=== PATIENT | female | born 1945 | race Caucasian/White ===

== ENCOUNTER 2025-01-25 17:30 | Observation (INO) ==
--- NOTE | 2025-01-25 17:54 | Emergency Department Note ---
Impression & Plan Fracture, humerus closed ED Provider Note NAME: YAHAIRA LÓPEZ AGE: 80 SEX: F : 1945 ARRIVES VIA: Ambulance INFORMANT: Patient ED PROVIDER(S): Jamie Chopra MD CHIEF COMPLAINT: Fall, left arm pain PLAN: Disposition: Admit MEDICAL DECISION MAKING: The patient is a pleasant 80-year-old woman with a past medical history of hypertension who presents to the emergency department via EMS after having a ground-level fall prior to arrival when the patient lost control walking down hill running into a metal fence where her left shoulder was caught and fell to the ground hitting her head with abrasion of the bridge of her nose and deformity of her left upper arm. She denies loss of consciousness. She is not on anticoagulation. She denies any neck, chest back or pelvic pain. They report that they are from [facility] and are visiting their daughter in the [facility]. On evaluation the patient is uncomfortable no distress, afebrile with blood pressure 140/100s in setting of discomfort and vital signs otherwise stable. Patient exhibits minor abrasion to the forehead and bridge of the nose without laceration. No midline CTL spine tenderness palpation or step-offs. She has deformity of the left mid upper arm with limited range of motion secondary to pain. Distal PMS is intact. Elbow without gross deformity or tenderness. Chest x-ray negative for fracture or dislocation. X-ray of the left shoulder demonstrates acute traumatic and moderately displaced spiral fracture of the left proximal humerus. Given findings, blood work and EKG obtained. X-ray findings were reviewed with Julio Cesar Donohue orthopedic ALINA with Dr. Wang, orthopedic surgery on-call. Following review of images, recommendations are for immobilization with coaptation splint. Injury is not considered to be surgical and recommendations would be for transition to a Cochran brace in approximately 2 weeks. Appreciate consultation recommendations. EKG without overt acute ischemia. WBC, H/H and platelets within normal limits. Creatinine 1.26 without prior for comparison. Chemistry without metabolic acidosis. Electrolytes and LFTs unremarkable. Out of caution CT of the head, face and cervical spine were obtained. Per my preliminary independent interpretation no acute abnormalities/traumatic findings identified. Findings reviewed the patient and family at the bedside. They did understandably express concern regarding her impaired functional status with her injury and did prefer admission to the hospitalist service for pain control and PT. Case was discussed with Dr. Wang, [facility] hospitalist, who will evaluate the patient for admission. Further management per admitting team. Triage Nursing notes reviewed and agree them. Prior/external medical records reviewed Vital Signs: reviewed Differential diagnosis: Fracture, dislocation, contusion, intra-abdominal, pneumothorax, intrathoracic, intracranial, neurologic, compartment syndrome, rhabdomyolysis, as well as other pathologies. ER treatment provided: See below. Diagnostics interpreted by me: ECG: Normal sinus rhythm, 77 bpm, no ectopy, no overt ST ovation or depression, QTc 450, QRS 94 Cardiac Monitoring: An order for continuous cardiac monitoring was placed and demonstrated Normal sinus rhythm, 77 bpm, no ectopy Laboratory studies: See below Imaging studies: See below Consultation(s): Julio Cesar Donohue orthopedic ALINA with Dr. Wang, orthopedic surgery on-call. Dr. Wang [facility] hospitalist. HPI: Per MDM. ROS: See above HPI for pertinent positives & negatives. A total of 10 systems reviewed and were otherwise negative. VITALS:See Below PHYSICAL EXAMINATION: GENERAL: Awake, alert, uncomfortable-appearing, in no distress HENT: Normocephalic, minor abrasion of the forehead and bridge of the nose without laceration. Oropharynx unremarkable. EYES: Normal conjunctiva. Sclera non-icteric. EOMI. No nystamgus. PEARRL. NECK: Supple. No nuchal rigidity. FROM. No JVD. RESPIRATORY: Clear to auscultation. CARDIAC: Regular rate, normal rhythm. Extremities warm and well perfused. Pulses equal. ABDOMEN: Soft, non-distended. No tenderness to palpation. No rebound or guarding. No masses. MUSCULOSKELETAL: Chest examination reveals no tenderness. The back is symmetrical on inspection without obvious abnormality. There is no CVA tenderness to palpation. Deformity of the left mid upper arm with limited range of motion secondary to pain. Distal PMS is intact. Elbow without gross deformity or tenderness. LOWER EXTREMITIES: Calves are equal size bilaterally and non-tender. Mild bilateral lower extremity edema. No discoloration. NEURO: No focal sensory or motor deficits noted. SKIN: No rash or jaundice noted. Jamie Chopra MD Past Med/Surg History Problem List (Updated 01/26/25 @ 02:09 by Adeline Wang DO) Fracture, humerus closed (Acute) Medical History (Updated 01/26/25 @ 02:09 by Adeline Wang DO) Hypertension Surgical History (Updated 01/26/25 @ 02:09 by Adeline Wang DO) History of cataract Social History Smoking Status: Never smoker Hx Alcohol Use: Yes Hx Substance Use: No Preferred Language: Nepali Communication Ability: Effective Molecular Biology Director Required: No Beliefs That Will Affect Care: None Current Living Situation: Spouse Feels Safe at Home: Yes Safety Concerns: Feels Safe At This Time Assistive Devices: Brace/Splint/Immobilizer Allergies Allergies Allergy/AdvReac Type Severity Reaction Status Date / Time No Known Allergies Allergy Unverified 01/25/25 21:56 Home Meds Home Medications Medication Instructions Recorded Confirmed Prevagen 1 cap PO DAILY 01/25/25 01/25/25 hydrochlorothiazide 12.5 mg capsule 12.5 mg PO DAILY 01/25/25 01/25/25 lisinopril 5 mg tablet 5 mg PO DAILY 01/25/25 01/25/25 Results & Data (ED) Vital Signs Vital Signs - 24 hr 01/25/25 17:48 01/25/25 18:15 01/25/25 19:38 Temperature 36.7 C Temperature Source Oral Pulse Rate 80 80 71 Pulse Rhythm Regular Pulse Strength Normal Respiratory Rate 18 16 Respiratory Effort / Characteristics Non-Labored Spontaneous Respiratory Depth Normal Respiratory Pattern Regular Blood Pressure 147/100 H 135/102 H Blood Pressure Mean 115 115 Blood Pressure Position Semi-fowlers Pulse Oximetry 98 98 Oxygen Delivery Method Room Air Sepsis Recent Fever Within 48 Hours No Sepsis New/Unexplained Change in Mental Status No Sepsis Action Taken by Nursing No Action Required 01/25/25 20:00 01/25/25 21:32 01/25/25 22:19 Temperature Temperature Source Pulse Rate 74 72 75 Pulse Rhythm Pulse Strength Respiratory Rate 16 16 20 Respiratory Effort / Characteristics Respiratory Depth Respiratory Pattern Blood Pressure 162/83 H 131/91 151/99 H Blood Pressure Mean 114 112 129 Blood Pressure Position Pulse Oximetry 96 97 98 Oxygen Delivery Method Room Air Sepsis Recent Fever Within 48 Hours Sepsis New/Unexplained Change in Mental Status Sepsis Action Taken by Nursing Laboratory Data Attestation: I reviewed the patient's lab results. 01/25/25 19:54 01/25/25 21:20 Lab Results 01/25/25 01/25/25 Range/Units 19:54 21:20 WBC 8.38 (4.8-10.8) K/ul RBC 4.04 L (4.20-5.40) M/uL Hgb 12.3 (12.0-16.0) g/dl Hct 38.1 (37.0-47.0) % MCV 94.3 (80.0-100.0) fL MCH 30.4 (25.0-34.0) pg MCHC 32.3 (32.0-36.0) g/dL RDW Std Deviation 47.0 H (36.4-46.3) fL RDW Coeff of [place] 13.5 (11.5-14.5) % Plt Count 214 (130-400) K/uL MPV 11.7 (9.4-12.4) fL Immature Gran % (Auto) 0.5 % Neut % (Auto) 59.4 % Lymph % (Auto) 26.3 % [place] % (Auto) 9.7 % Eos % (Auto) 3.7 % Baso % (Auto) 0.4 % Neut # (Auto) 4.99 (1.40-6.50) K/uL Lymph # (Auto) 2.20 (1.20-3.40) K/uL [place] # (Auto) 0.81 H (0.11-0.59) K/uL Eos # (Auto) 0.31 (0.00-0.50) K/uL Baso # (Auto) 0.03 (0.00-0.20) K/uL Immature Gran # (Auto) 0.04 (0.01-0.20) K/uL PT Cancelled 10.7 INR Cancelled 1.0 APTT Cancelled 22 PTT Ratio Cancelled 0.8 Sodium 144 (136-145) mmol/L Potassium TNP 4.4 Chloride 110 H (98-107) mmol/L Carbon Dioxide 25 (21-32) mmol/L Anion Gap 9 (3-11) BUN 26 H (6-23) mg/dl Creatinine 1.26 H (0.6-1.2) mg/dl Est Cr Clr Drug Dosing 39.3 ml/min eGFR 42.62 BUN/Creatinine Ratio 20.6 H (10-20) Glucose 110 H (70-99(Fasting)) mg/dl Calcium 9.3 (8.6-10.3) mg/dl Total Bilirubin 0.3 (0.2-1.0) mg/dl AST TNP 18 ALT 18 (7-52) U/L Alkaline Phosphatase 46 (34-104) U/L Total Protein 7.0 (6.0-8.3) gm/dl Albumin 3.9 (3.4-5.0) gm/dl Globulin 3.1 (2.5-4.0) gm/dl Albumin/Globulin Ratio 1.3 (0.9-2) Administered Medications Lactated Ringer's (Lr) 1,000 mls @ 80 mls/hr IV .[id number] [facility] Stop: 01/26/25 12:11 Last Admin: 01/25/25 23:54 Dose: 80 mls/hr Documented By: MIGUEL Morphine Sulfate (Morphine Sulfate 2 Mg/Ml Carp) 2 mg IV Q3H PRN PRN Reason: Pain (6,7,8,9,10) Stop: 02/08/25 23:41 Last Admin: 01/26/25 03:18 Dose: 2 mg Documented By: MIGUEL Discontinued Medications Acetaminophen (Ofirmev) 1,000 mg in 100 mls @ 400 mls/hr IV NOW STA Stop: 01/25/25 18:05 Last Infusion: 01/25/25 19:00 Dose: Infused Documented By: Admin: 01/25/25 18:14 Dose: 400 mls/hr Documented By: JAMARCUS Sodium Chloride (Nss) 1,000 mls @ 75 mls/hr IV .[id number] [facility] Stop: 01/26/25 09:04 Last Infusion: 01/25/25 23:00 Dose: Infused Documented By: Admin: 01/25/25 20:00 Dose: 75 mls/hr Documented By: ELENI Morphine Sulfate (Morphine Sulfate 2 Mg/Ml Carp) 2 mg IV NOW STA Stop: 01/25/25 17:52 Last Admin: 01/25/25 18:16 Dose: 2 mg Documented By: JAMARCUS Morphine Sulfate (Morphine Sulfate 2 Mg/Ml Carp) 2 mg IV NOW STA Stop: 01/25/25 19:50 Last Admin: 01/25/25 20:00 Dose: 2 mg Documented By: ELENI Morphine Sulfate (Morphine Sulfate 2 Mg/Ml Carp) 2 mg IV NOW STA Stop: 01/25/25 22:07 Last Admin: 01/25/25 22:15 Dose: 2 mg Documented By: ELENI Ondansetron HCl (Ondansetron Inj 2 Mg/Ml 2 Ml Vial) 4 mg IV NOW STA Stop: 01/25/25 17:52 Last Admin: 01/25/25 18:16 Dose: 4 mg Documented By: TDM Imaging Data Radiologist's Impression: Cervical Spine CT 01/25/25 17:51 Exam(s): CT C SPINE EXAM: CT Cervical Spine Without Intravenous Contrast CLINICAL HISTORY: Reason for exam: fall, contusion. TECHNIQUE: Axial computed tomography images of the cervical spine without intravenous contrast. CTDI is 36 mGy and DLP is 718 mGy-cm. Automated exposure control was utilized for the study. A dose lowering technique was utilized adhering to the principles of ALARA. COMPARISON: No relevant prior studies available. FINDINGS: Vertebrae: Moderate narrowing and osteophytosis of the atlantodental joint. The odontoid process is intact. No acute fracture. Soft tissues: Unremarkable. Vasculature: Mild calcification of the carotid bifurcation bilaterally. DISCS/SPINAL CANAL/NEURAL FORAMINA: C2-C3: Mild degenerative disc disease. No stenosis. C3-C4: Moderate degenerative disc disease. Mild spinal stenosis measuring 9 mm. C4-C5: Moderate degenerative disc disease. Posterior disc herniation and disc marginal osteophyte measuring 4 mm narrowing the spinal canal to 7 mm. C5-C6: Moderate degenerative disc disease. 6 mm central disc herniation narrowing the thecal sac to 5 mm. C6-C7: Moderate degenerative disc disease. 4 mm central disc herniation narrowing the thecal sac to 6 mm. C7-T1: Moderate degenerative disc disease. No stenosis. IMPRESSION: Moderate multilevel degenerative disc disease and mild facet arthrosis throughout the cervical spine. No acute fracture or subluxation is seen. There is straightening of the normal cervical curvature suggesting spasm. [id number] multilevel spinal stenosis as described above. Electronically signed by: Sergo Wang MD 01/25/25 23:22 PM Chest X-Ray 01/25/25 17:51 EXAM: Portable AP chest radiograph TECHNIQUE: AP portable radiograph of the chest was obtained. INDICATION: Trauma Comparison: None FINDINGS: LINES and TUBES: None CARDIOVASCULAR: Cardiac silhouette is mildly enlarged in size. LUNGS/PLEURA: Mild pulmonary vascular congestion. No focal consolidation identified. No significant pleural fluid. No discernible pneumothorax. OSSEOUS/OTHER: No displaced acute osseous process identified in the chest. IMPRESSION: Mild congestive changes of the cardiovascular system. Electronically signed by Wai Madrigal 01-25-2025 7:46 PM Elbow X-Ray 01/25/25 17:51 EXAM: XR elbow LT min 3V routine CLINICAL HISTORY: Fall left shoulder pain TECHNIQUE: X-ray images of the left elbow were obtained in anteroposterior (AP), lateral, and oblique projections. COMPARISON: No prior studies available for comparison. FINDINGS: Bone Structure: The bone structure of the left elbow is normal and well-aligned. Questionable cortical irregularity involving the coronoid process only on one view/osteophyte, please correlate clinically, or CT elbow joint is advised for further evaluation No definite evidence of acute fractures, dislocations, or significant degenerative changes. Visible posterior fat pad likely denoting joint effusion. Joint Spaces: Joint spaces are preserved. No evidence of joint effusion or subluxation. Articular Surfaces: Articular surfaces are smooth and intact. No signs of osteophyte formation or subchondral sclerosis. Soft Tissues: Enthesopathy is seen at the site of attachment of the triceps tendon Periarticular soft tissues appear normal and unremarkable. No soft tissue swelling, calcifications, or foreign bodies noted. Additional Findings: Visible posterior fat pad likely denoting joint effusion. IMPRESSION: 1. Questionable cortical irregularity involving the coronoid process only on one view/osteophyte, please correlate clinically, or CT elbow joint is advised for further evaluation 2. No definite evidence of acute fractures, dislocations, or significant degenerative changes. 3. Visible posterior fat pad likely denoting joint effusion. 4. Enthesopathy is seen at the site of attachment of the triceps tendon. Disclaimer: A subtle bone abnormality or fracture may not be readily apparent on X-rays, thus clinical correlation and further imaging including follow-up CT, MRI, or follow-up X-rays are advised as needed. Electronically signed by Jalil Parker 01-25-2025 8:[address] 01/25/25 17:51 Exam(s): CT HEAD Without Contrast EXAM: CT Head Without Intravenous Contrast CLINICAL HISTORY: Reason for exam: fall, contusion. TECHNIQUE: Axial computed tomography images of the head/brain without intravenous contrast. CTDI is 36 mGy and DLP is 718 mGy-cm. Automated exposure control was utilized for the study. A dose lowering technique was utilized adhering to the principles of ALARA. COMPARISON: No relevant prior studies available. FINDINGS: Brain: Unremarkable. No hemorrhage. Mild nonspecific white matter changes. No edema. Ventricles: Mild ventriculomegaly. Bones/joints: Unremarkable. No acute fracture. Soft tissues: Unremarkable. Sinuses: Unremarkable as visualized. No acute sinusitis. Mastoid air cells: Unremarkable as visualized. No mastoid effusion. IMPRESSION: No evidence of acute intracranial pathology. Electronically signed by: Zarina Marks MD 01/25/25 23:19 PM Pelvis X-Ray 01/25/25 17:51 INDICATION: Trauma TECHNIQUE: Frontal pelvic radiograph and 1 additional view of the right hip were obtained. COMPARISON: None FINDINGS: No displaced acute osseous process is identified. Mild osteoarthritis of both hip joints. IMPRESSION: No displaced acute osseous process is identified. Electronically signed by Wai Madrigal 01-25-2025 8:18 PM Shoulder X-Ray 01/25/25 17:51 INDICATION: TRAUMA TECHNIQUE: 2 views of the left shoulder were obtained. COMPARISON: None FINDINGS: There is an acute traumatic and moderately displaced spiral fracture in the proximal shaft of the left humerus with medial displacement of the distal humeral segment. IMPRESSION: Acute traumatic and moderately displaced spiral fracture of the left proximal humerus. Electronically signed by Wai Madrigal 01-25-2025 7:[address] 01/25/25 17:53 Exam(s): CT FACIAL Without Contrast EXAM: CT Head and Maxillofacial Without Intravenous Contrast CLINICAL HISTORY: Reason for exam: contusion fall. TECHNIQUE: Axial computed tomography images of the head/brain and face without intravenous contrast. CTDI is 36 mGy and DLP is 718 mGy-cm. Automated exposure control was utilized for the study. A dose lowering technique was utilized adhering to the principles of ALARA. COMPARISON: No relevant prior studies available. FINDINGS: Bones/joints: Findings concerning for left nasal bone fracture. Periapical abscess around tooth #14. Recommend dental consult. Severe spinal canal stenosis at C3-4. Soft tissues: Soft tissue swelling around the nose. Sinuses: Unremarkable as visualized. No acute sinusitis. Mastoid air cells: Unremarkable as visualized. No mastoid effusion. Orbits: Unremarkable as visualized. IMPRESSION: Findings concerning for left nasal high fracture with soft tissue swelling. Electronically signed by: Zarina Marks MD 01/25/25 23:23 PM Discharge Plan Visit Data Chief Complaint: Fall ED Provider: Jamie Chopra Discharge Problem: Fracture, humerus closed Patient Disposition: Admitted As Inpatient Condition: Fair Discharge Instructions Interventions: ED Discharge Assessment Last Done: 01/25/25 23:13
[2025-01-25] MEDS: ACETAMINOPHEN 1,000 MG/100 ML VIAL IV STA (18:14)
[2025-01-25] MEDS: ONDANSETRON INJ 2 MG/ML 2 ML VIAL IV STA (18:16)
[2025-01-25] MEDS: MoRPHine SULFATE 2 MG/ML CARP IV STA ×3 (18:16→22:15)
--- NOTE | 2025-01-25 19:47 | XRay Report ---
INDICATION: TRAUMA TECHNIQUE: 2 views of the left shoulder were obtained. COMPARISON: None FINDINGS: There is an acute traumatic and moderately displaced spiral fracture in the proximal shaft of the left humerus with medial displacement of the distal humeral segment. IMPRESSION: Acute traumatic and moderately displaced spiral fracture of the left proximal humerus. Electronically signed by Wai Madrigal 01-25-2025 7:46 PM
--- NOTE | 2025-01-25 19:47 | XRay Report ---
EXAM: Portable AP chest radiograph TECHNIQUE: AP portable radiograph of the chest was obtained. INDICATION: Trauma Comparison: None FINDINGS: LINES and TUBES: None CARDIOVASCULAR: Cardiac silhouette is mildly enlarged in size. LUNGS/PLEURA: Mild pulmonary vascular congestion. No focal consolidation identified. No significant pleural fluid. No discernible pneumothorax. OSSEOUS/OTHER: No displaced acute osseous process identified in the chest. IMPRESSION: Mild congestive changes of the cardiovascular system. Electronically signed by Wai Madrigal 01-25-2025 7:46 PM
[2025-01-25] MEDS: SODIUM CHLORIDE 0.9% 1,000 ML IV SCH (20:00)
--- NOTE | 2025-01-25 20:19 | XRay Report ---
INDICATION: Trauma TECHNIQUE: Frontal pelvic radiograph and 1 additional view of the right hip were obtained. COMPARISON: None FINDINGS: No displaced acute osseous process is identified. Mild osteoarthritis of both hip joints. IMPRESSION: No displaced acute osseous process is identified. Electronically signed by Wai Madrigal 01-25-2025 8:18 PM
[2025-01-25 20:21] LABS: Hematocrit (blood only) 38.1 % (37.0-47.0); Hemoglobin 12.3 g/dl (12.0-16.0); Immature Granulocytes # (auto) 0.04 K/uL (0.01-0.20); Immature Granulocytes % (auto) 0.5 %; Mean Corpuscular Hemoglobin 30.4 pg (25.0-34.0); Mean Corpuscular Volume 94.3 fL (80.0-100.0); Platelet Count 214 K/uL (130-400); RDW Standard Deviation 47.0 fL (36.4-46.3); Red Blood Count 4.04 M/uL (4.20-5.40); White Blood Count 8.38 K/ul (4.8-10.8)
[2025-01-25 20:46] LABS: Alanine Aminotransferase 18 U/L (7-52); Albumin Globulin Ratio 1.3 (0.9-2); Alkaline Phosphatase 46 U/L (34-104); Anion Gap 9 (3-11); Bilirubin,Total 0.3 mg/dl (0.2-1.0); Blood Urea Nitrogen 26 mg/dl (6-23); Calcium 9.3 mg/dl (8.6-10.3); Carbon Dioxide 25 mmol/L (21-32); Chloride 110 mmol/L (98-107); Creatinine Clr Calc Pharmacy 39.3 ml/min; Globulin 3.1 gm/dl (2.5-4.0); Glucose 110 mg/dl (70-99(Fasting)); Sodium 144 mmol/L (136-145); Total Protein 7.0 gm/dl (6.0-8.3)
--- NOTE | 2025-01-25 20:54 | XRay Report ---
EXAM: XR elbow LT min 3V routine CLINICAL HISTORY: Fall left shoulder pain TECHNIQUE: X-ray images of the left elbow were obtained in anteroposterior (AP), lateral, and oblique projections. COMPARISON: No prior studies available for comparison. FINDINGS: Bone Structure: The bone structure of the left elbow is normal and well-aligned. Questionable cortical irregularity involving the coronoid process only on one view/osteophyte, please correlate clinically, or CT elbow joint is advised for further evaluation No definite evidence of acute fractures, dislocations, or significant degenerative changes. Visible posterior fat pad likely denoting joint effusion. Joint Spaces: Joint spaces are preserved. No evidence of joint effusion or subluxation. Articular Surfaces: Articular surfaces are smooth and intact. No signs of osteophyte formation or subchondral sclerosis. Soft Tissues: Enthesopathy is seen at the site of attachment of the triceps tendon Periarticular soft tissues appear normal and unremarkable. No soft tissue swelling, calcifications, or foreign bodies noted. Additional Findings: Visible posterior fat pad likely denoting joint effusion. IMPRESSION: 1. Questionable cortical irregularity involving the coronoid process only on one view/osteophyte, please correlate clinically, or CT elbow joint is advised for further evaluation 2. No definite evidence of acute fractures, dislocations, or significant degenerative changes. 3. Visible posterior fat pad likely denoting joint effusion. 4. Enthesopathy is seen at the site of attachment of the triceps tendon. Disclaimer: A subtle bone abnormality or fracture may not be readily apparent on X-rays, thus clinical correlation and further imaging including follow-up CT, MRI, or follow-up X-rays are advised as needed. Electronically signed by Jalil Parker 01-25-2025 8:53 PM
[2025-01-25 21:53] LABS: Potassium 4.4 mmol/L (3.5-5.1)
[2025-01-25 22:17] LABS: INR 1.0 (0.9-1.1); Partial Thromboplastin Time 22 Seconds (21-31); Prothrombin Time 10.7 Seconds (9.0-12.0)
--- NOTE | 2025-01-25 22:25 | History & Physical Report ---
Date of Service January 25, 2025 Assessment & Plan (1) Fracture, humerus closed: (2) Hypertension: Plan 80 yo female with history of HTN presenting with acute traumatic and moderately displaced spiral fracture of the left proximal humerus that occurred this evening when patient sustained a fall and entangled her arm in a fence. LUE is presently being placed in a splint. Neurovascularly intact with 5/5 strength in left hand #Fracture - spiral, proximal humerus with moderate displacement. -Admit to medical -Maintain splint -Pain control with Tylenol 1gm PO TID and Morphine 1-2 mg IV q 3 hours as needed for pain -Zofran PRN nausea -Narcan PRN accidental overdose or respiratory depression -Scheduled Docusate/Senna and PRN Miralax -Orthopedic Surgery consultation appreciated - patient may wish to followup with local providers rather than returning to see her physicians in [facility] -PT/OT evaluations appreciated #Hypertension - patient with elevated blood pressure in setting of acute trauma and pain, history of HTN -Pain control as above -Continue home HCTZ and Lisinopril -Monitor BP History of Present Illness Chief Complaint: fall, left humerus fracture Primary Care Provider: DO Norma Moore Jose is a pleasant 80yo female with history of HTN presenting after a fall at home. Patient and her are from [facility] and are visiting family in [place]. She presents today with her and her son (son is a Neurosurgeon in the [place] area). Patient had been in her usual state of health until this evening when she fell down a small slope in the yard near the pool. Her left arm became entangled in a metal fence and she fell. She did strike her face but denies LOC. No report of chest pain, dizziness or palpitations. Patient presents with significant pain in the left arm with visible deformity as well as laceration on her nose. No additional complaints at this time. ER staff is in the process of splinting the LUE ER Course: Acetaminophen 1gm Morphine 2mg + 2mg + 2mg Zofran 4mg NSS x 1L Allergies Allergy/AdvReac Type Severity Reaction Status Date / Time No Known Allergies Allergy Unverified 01/25/25 21:56 Home Medications Medication Instructions Recorded Confirmed Type Prevagen 1 cap PO DAILY 01/25/25 01/25/25 History hydrochlorothiazide 12.5 mg capsule 12.5 mg PO DAILY 01/25/25 01/25/25 History lisinopril 5 mg tablet 5 mg PO DAILY 01/25/25 01/25/25 History Past Med/Surg History Problem List (Updated 01/26/25 @ 02:09 by Adeline Wang DO) Fracture, humerus closed (Acute) Medical History (Updated 01/26/25 @ 02:09 by Adeline Wang DO) Hypertension Surgical History (Updated 01/26/25 @ 02:09 by Adeline Wang DO) History of cataract Social History Smoking Status: Never smoker Hx Alcohol Use: Yes Hx Substance Use: No Preferred Language: Greenlandic Communication Ability: Effective Record Clerk Salesperson Required: No Beliefs That Will Affect Care: None Current Living Situation: Spouse Feels Safe at Home: Yes Safety Concerns: Feels Safe At This Time Assistive Devices: Brace/Splint/Immobilizer Review of Systems Review of Systems: All systems reviewed & are unremarkable except as noted in HPI & below Physical Exam Physical Exam: General: patient in significant discomfort from LUE fracture. Splint being placed by ER team. Skin: facial abrasions, no active bleeding HEENT: PERRL, EOMI, anicteric sclera, conjunctiva without injection, external ear normal to inspection and nontender, nares patent, moist mucus membranes, dentition intact, no oropharyngeal lesions, neck supple, trachea midline, no LAD, no thyromegaly, no JVD Heart: +S1/S2, regular, no m/r/g Lungs: equal air entry bilaterally, no rales/rhonchi/wheezes Abd: +BS, soft, NT/ND, no masses/organomegaly/ascites Ext: warm, 2+ pulses in UE/LE bilaterally, no clubbing/cyanosis or edema Neuro: nonfocal, patient AA&O x 4, speech intact, no facial droop, moving all extremities on command with equal strength 5/5 Results & Data Results & Data Vital Signs (Past 12 Hours) Vital Signs Temp Pulse Resp BP Pulse Ox O2 Del Method 01/25/25 21:32 72 16 131/91 97 01/25/25 20:00 74 16 162/83 H 96 Room Air 01/25/25 19:38 71 16 135/102 H 98 01/25/25 18:15 80 01/25/25 17:48 36.7 C 80 18 147/100 H 98 Room Air Laboratory Results Laboratory Results WBC 8.38 K/ul (4.8-10.8) 01/25/25 19:54 RBC 4.04 M/uL (4.20-5.40) L 01/25/25 19:54 Hgb 12.3 g/dl (12.0-16.0) 01/25/25 19:54 Hct 38.1 % (37.0-47.0) 01/25/25 19:54 MCV 94.3 fL (80.0-100.0) 01/25/25 19:54 MCH 30.4 pg (25.0-34.0) 01/25/25 19:54 MCHC 32.3 g/dL (32.0-36.0) 01/25/25 19:54 RDW Std Deviation 47.0 fL (36.4-46.3) H 01/25/25 19:54 RDW Coeff of Kings 13.5 % (11.5-14.5) 01/25/25 19:54 Plt Count 214 K/uL (130-400) 01/25/25 19:54 MPV 11.7 fL (9.4-12.4) 01/25/25 19:54 Immature Gran % (Auto) 0.5 % 01/25/25 19:54 Neut % (Auto) 59.4 % 01/25/25 19:54 Lymph % (Auto) 26.3 % 01/25/25 19:54 [place] % (Auto) 9.7 % 01/25/25 19:54 Eos % (Auto) 3.7 % 01/25/25 19:54 Baso % (Auto) 0.4 % 01/25/25 19:54 Neut # (Auto) 4.99 K/uL (1.40-6.50) 01/25/25 19:54 Lymph # (Auto) 2.20 K/uL (1.20-3.40) 01/25/25 19:54 [place] # (Auto) 0.81 K/uL (0.11-0.59) H 01/25/25 19:54 Eos # (Auto) 0.31 K/uL (0.00-0.50) 01/25/25 19:54 Baso # (Auto) 0.03 K/uL (0.00-0.20) 01/25/25 19:54 Immature Gran # (Auto) 0.04 K/uL (0.01-0.20) 01/25/25 19:54 PT 10.7 Seconds (9.0-12.0) 01/25/25 21:20 INR 1.0 (0.9-1.1) 01/25/25 21:20 APTT 22 Seconds (21-31) 01/25/25 21:20 PTT Ratio 0.8 01/25/25 21:20 Sodium 144 mmol/L (136-145) 01/25/25 19:54 Potassium 4.4 mmol/L (3.5-5.1) 01/25/25 21:20 Chloride 110 mmol/L (98-107) H 01/25/25 19:54 Carbon Dioxide 25 mmol/L (21-32) 01/25/25 19:54 Anion Gap 9 (3-11) 01/25/25 19:54 BUN 26 mg/dl (6-23) H 01/25/25 19:54 Creatinine 1.26 mg/dl (0.6-1.2) H 01/25/25 19:54 Est Cr Clr Drug Dosing 39.3 ml/min 01/25/25 19:54 eGFR 42.62 01/25/25 19:54 BUN/Creatinine Ratio 20.6 (10-20) H 01/25/25 19:54 Glucose 110 mg/dl (70-99(Fasting)) H 01/25/25 19:54 Calcium 9.3 mg/dl (8.6-10.3) 01/25/25 19:54 Total Bilirubin 0.3 mg/dl (0.2-1.0) 01/25/25 19:54 AST 18 U/L (13-39) 01/25/25 21:20 ALT 18 U/L (7-52) 01/25/25 19:54 Alkaline Phosphatase 46 U/L (34-104) 01/25/25 19:54 Total Protein 7.0 gm/dl (6.0-8.3) 01/25/25 19:54 Albumin 3.9 gm/dl (3.4-5.0) 01/25/25 19:54 Globulin 3.1 gm/dl (2.5-4.0) 01/25/25 19:54 Albumin/Globulin Ratio 1.3 (0.9-2) 01/25/25 19:[address] 01/25/25 17:51 Exam(s): CT C SPINE EXAM: CT Cervical Spine Without Intravenous Contrast CLINICAL HISTORY: Reason for exam: fall, contusion. TECHNIQUE: Axial computed tomography images of the cervical spine without intravenous contrast. CTDI is 36 mGy and DLP is 718 mGy-cm. Automated exposure control was utilized for the study. A dose lowering technique was utilized adhering to the principles of ALARA. COMPARISON: No relevant prior studies available. FINDINGS: Vertebrae: Moderate narrowing and osteophytosis of the atlantodental joint. The odontoid process is intact. No acute fracture. Soft tissues: Unremarkable. Vasculature: Mild calcification of the carotid bifurcation bilaterally. DISCS/SPINAL CANAL/NEURAL FORAMINA: C2-C3: Mild degenerative disc disease. No stenosis. C3-C4: Moderate degenerative disc disease. Mild spinal stenosis measuring 9 mm. C4-C5: Moderate degenerative disc disease. Posterior disc herniation and disc marginal osteophyte measuring 4 mm narrowing the spinal canal to 7 mm. C5-C6: Moderate degenerative disc disease. 6 mm central disc herniation narrowing the thecal sac to 5 mm. C6-C7: Moderate degenerative disc disease. 4 mm central disc herniation narrowing the thecal sac to 6 mm. C7-T1: Moderate degenerative disc disease. No stenosis. IMPRESSION: Moderate multilevel degenerative disc disease and mild facet arthrosis throughout the cervical spine. No acute fracture or subluxation is seen. There is straightening of the normal cervical curvature suggesting spasm. [id number] multilevel spinal stenosis as described above. Electronically signed by: Sergo Wang MD 01/25/25 23:22 PM Chest X-Ray 01/25/25 17:51 EXAM: Portable AP chest radiograph TECHNIQUE: AP portable radiograph of the chest was obtained. INDICATION: Trauma Comparison: None FINDINGS: LINES and TUBES: None CARDIOVASCULAR: Cardiac silhouette is mildly enlarged in size. LUNGS/PLEURA: Mild pulmonary vascular congestion. No focal consolidation identified. No significant pleural fluid. No discernible pneumothorax. OSSEOUS/OTHER: No displaced acute osseous process identified in the chest. IMPRESSION: Mild congestive changes of the cardiovascular system. Electronically signed by Wai Madrigal 01-25-2025 7:46 PM Elbow X-Ray 01/25/25 17:51 EXAM: XR elbow LT min 3V routine CLINICAL HISTORY: Fall left shoulder pain TECHNIQUE: X-ray images of the left elbow were obtained in anteroposterior (AP), lateral, and oblique projections. COMPARISON: No prior studies available for comparison. FINDINGS: Bone Structure: The bone structure of the left elbow is normal and well-aligned. Questionable cortical irregularity involving the coronoid process only on one view/osteophyte, please correlate clinically, or CT elbow joint is advised for further evaluation No definite evidence of acute fractures, dislocations, or significant degenerative changes. Visible posterior fat pad likely denoting joint effusion. Joint Spaces: Joint spaces are preserved. No evidence of joint effusion or subluxation. Articular Surfaces: Articular surfaces are smooth and intact. No signs of osteophyte formation or subchondral sclerosis. Soft Tissues: Enthesopathy is seen at the site of attachment of the triceps tendon Periarticular soft tissues appear normal and unremarkable. No soft tissue swelling, calcifications, or foreign bodies noted. Additional Findings: Visible posterior fat pad likely denoting joint effusion. IMPRESSION: 1. Questionable cortical irregularity involving the coronoid process only on one view/osteophyte, please correlate clinically, or CT elbow joint is advised for further evaluation 2. No definite evidence of acute fractures, dislocations, or significant degenerative changes. 3. Visible posterior fat pad likely denoting joint effusion. 4. Enthesopathy is seen at the site of attachment of the triceps tendon. Disclaimer: A subtle bone abnormality or fracture may not be readily apparent on X-rays, thus clinical correlation and further imaging including follow-up CT, MRI, or follow-up X-rays are advised as needed. Electronically signed by Jalil Parker 01-25-2025 8:[address] 01/25/25 17:51 Exam(s): CT HEAD Without Contrast EXAM: CT Head Without Intravenous Contrast CLINICAL HISTORY: Reason for exam: fall, contusion. TECHNIQUE: Axial computed tomography images of the head/brain without intravenous contrast. CTDI is 36 mGy and DLP is 718 mGy-cm. Automated exposure control was utilized for the study. A dose lowering technique was utilized adhering to the principles of ALARA. COMPARISON: No relevant prior studies available. FINDINGS: Brain: Unremarkable. No hemorrhage. Mild nonspecific white matter changes. No edema. Ventricles: Mild ventriculomegaly. Bones/joints: Unremarkable. No acute fracture. Soft tissues: Unremarkable. Sinuses: Unremarkable as visualized. No acute sinusitis. Mastoid air cells: Unremarkable as visualized. No mastoid effusion. IMPRESSION: No evidence of acute intracranial pathology. Electronically signed by: Zarina Marks MD 01/25/25 23:19 PM Pelvis X-Ray 01/25/25 17:51 INDICATION: Trauma TECHNIQUE: Frontal pelvic radiograph and 1 additional view of the right hip were obtained. COMPARISON: None FINDINGS: No displaced acute osseous process is identified. Mild osteoarthritis of both hip joints. IMPRESSION: No displaced acute osseous process is identified. Electronically signed by Wai Madrigal 01-25-2025 8:18 PM Shoulder X-Ray 01/25/25 17:51 INDICATION: TRAUMA TECHNIQUE: 2 views of the left shoulder were obtained. COMPARISON: None FINDINGS: There is an acute traumatic and moderately displaced spiral fracture in the proximal shaft of the left humerus with medial displacement of the distal humeral segment. IMPRESSION: Acute traumatic and moderately displaced spiral fracture of the left proximal humerus. Electronically signed by Wai Madrigal 01-25-2025 7:[address] 01/25/25 17:53 Exam(s): CT FACIAL Without Contrast EXAM: CT Head and Maxillofacial Without Intravenous Contrast CLINICAL HISTORY: Reason for exam: contusion fall. TECHNIQUE: Axial computed tomography images of the head/brain and face without intravenous contrast. CTDI is 36 mGy and DLP is 718 mGy-cm. Automated exposure control was utilized for the study. A dose lowering technique was utilized adhering to the principles of ALARA. COMPARISON: No relevant prior studies available. FINDINGS: Bones/joints: Findings concerning for left nasal bone fracture. Periapical abscess around tooth #14. Recommend dental consult. Severe spinal canal stenosis at C3-4. Soft tissues: Soft tissue swelling around the nose. Sinuses: Unremarkable as visualized. No acute sinusitis. Mastoid air cells: Unremarkable as visualized. No mastoid effusion. Orbits: Unremarkable as visualized. IMPRESSION: Findings concerning for left nasal high fracture with soft tissue swelling. Electronically signed by: Zarina Marks MD 01/25/25 23:23 PM PG Care Time/CCT Total # of Minutes Spent Total Time Spent with Patient: Total time spent is greater than 50% in coordination of care (as documented) at patient's floor/unit and/or counseling patient: Coding Level of Care Code 32750 INT INP/OBS CARE MIN Diagnoses Fracture, humerus closed S42.309A Hypertension I10
--- NOTE | 2025-01-25 23:20 | CT Scan Report ---
Exam(s): CT HEAD Without Contrast EXAM: CT Head Without Intravenous Contrast CLINICAL HISTORY: Reason for exam: fall, contusion. TECHNIQUE: Axial computed tomography images of the head/brain without intravenous contrast. CTDI is 36 mGy and DLP is 718 mGy-cm. Automated exposure control was utilized for the study. A dose lowering technique was utilized adhering to the principles of ALARA. COMPARISON: No relevant prior studies available. FINDINGS: Brain: Unremarkable. No hemorrhage. Mild nonspecific white matter changes. No edema. Ventricles: Mild ventriculomegaly. Bones/joints: Unremarkable. No acute fracture. Soft tissues: Unremarkable. Sinuses: Unremarkable as visualized. No acute sinusitis. Mastoid air cells: Unremarkable as visualized. No mastoid effusion. IMPRESSION: No evidence of acute intracranial pathology. Electronically signed by: Zarina Marks MD 01/25/25 23:19 PM
--- NOTE | 2025-01-25 23:23 | CT Scan Report ---
Exam(s): CT C SPINE EXAM: CT Cervical Spine Without Intravenous Contrast CLINICAL HISTORY: Reason for exam: fall, contusion. TECHNIQUE: Axial computed tomography images of the cervical spine without intravenous contrast. CTDI is 36 mGy and DLP is 718 mGy-cm. Automated exposure control was utilized for the study. A dose lowering technique was utilized adhering to the principles of ALARA. COMPARISON: No relevant prior studies available. FINDINGS: Vertebrae: Moderate narrowing and osteophytosis of the atlantodental joint. The odontoid process is intact. No acute fracture. Soft tissues: Unremarkable. Vasculature: Mild calcification of the carotid bifurcation bilaterally. DISCS/SPINAL CANAL/NEURAL FORAMINA: C2-C3: Mild degenerative disc disease. No stenosis. C3-C4: Moderate degenerative disc disease. Mild spinal stenosis measuring 9 mm. C4-C5: Moderate degenerative disc disease. Posterior disc herniation and disc marginal osteophyte measuring 4 mm narrowing the spinal canal to 7 mm. C5-C6: Moderate degenerative disc disease. 6 mm central disc herniation narrowing the thecal sac to 5 mm. C6-C7: Moderate degenerative disc disease. 4 mm central disc herniation narrowing the thecal sac to 6 mm. C7-T1: Moderate degenerative disc disease. No stenosis. IMPRESSION: Moderate multilevel degenerative disc disease and mild facet arthrosis throughout the cervical spine. No acute fracture or subluxation is seen. There is straightening of the normal cervical curvature suggesting spasm. [id number] multilevel spinal stenosis as described above. Electronically signed by: Sergo Wang MD 01/25/25 23:22 PM
--- NOTE | 2025-01-25 23:24 | CT Scan Report ---
Exam(s): CT FACIAL Without Contrast EXAM: CT Head and Maxillofacial Without Intravenous Contrast CLINICAL HISTORY: Reason for exam: contusion fall. TECHNIQUE: Axial computed tomography images of the head/brain and face without intravenous contrast. CTDI is 36 mGy and DLP is 718 mGy-cm. Automated exposure control was utilized for the study. A dose lowering technique was utilized adhering to the principles of ALARA. COMPARISON: No relevant prior studies available. FINDINGS: Bones/joints: Findings concerning for left nasal bone fracture. Periapical abscess around tooth #14. Recommend dental consult. Severe spinal canal stenosis at C3-4. Soft tissues: Soft tissue swelling around the nose. Sinuses: Unremarkable as visualized. No acute sinusitis. Mastoid air cells: Unremarkable as visualized. No mastoid effusion. Orbits: Unremarkable as visualized. IMPRESSION: Findings concerning for left nasal high fracture with soft tissue swelling. Electronically signed by: Zarina Marks MD 01/25/25 23:23 PM
[2025-01-25] MEDS ORDERED: ONDANSETRON INJ 2 MG/ML 2 ML VIAL IV PRN (23:42)
[2025-01-25] MEDS ORDERED: MoRPHine SULFATE 2 MG/ML CARP IV PRN (23:42)
[2025-01-25] MEDS ORDERED: POLYETHYLENE (MIRALAX) 17 GM PACK PO PRN (23:42)
[2025-01-25] MEDS ORDERED: NALOXONE HCL 0.4 MG/1 ML VIAL/CARP IV PRN (23:42)
[2025-01-25] MEDS: LACTATED RINGER'S 1,000 ML IV SCH (23:54)
[2025-01-26] MEDS: MoRPHine SULFATE 2 MG/ML CARP IV PRN (03:18)
[2025-01-26 06:06] LABS: Hematocrit (blood only) 32.4 % (37.0-47.0); Hemoglobin 10.7 g/dl (12.0-16.0); Mean Corpuscular Hemoglobin 31.3 pg (25.0-34.0); Mean Corpuscular Volume 94.7 fL (80.0-100.0); Platelet Count 174 K/uL (130-400); RDW Standard Deviation 46.2 fL (36.4-46.3); Red Blood Count 3.42 M/uL (4.20-5.40); White Blood Count 8.58 K/ul (4.8-10.8)
[2025-01-26 06:28] LABS: Anion Gap 7.0 (3-11); Blood Urea Nitrogen 27.0 mg/dl (6-23); Calcium 8.7 mg/dl (8.6-10.3); Carbon Dioxide 25.0 mmol/L (21-32); Chloride 112.0 mmol/L (98-107); Creatinine Clr Calc Pharmacy 44.2 ml/min; Glucose 126.0 mg/dl (70-99(Fasting)); Potassium 4.4 mmol/L (3.5-5.1); Sodium 144.0 mmol/L (136-145)
[2025-01-26 06:57] VITALS: BP 133/65; RESP 18; TEMP 98.6; O2SAT 92
--- NOTE | 2025-01-26 07:29 | Electrocardiogram Report ---
Test Reason : Blood Pressure : */* mmHG Vent. Rate : 77 BPM Atrial Rate : 77 BPM P-R Int : 174 ms QRS Dur : 94 ms QT Int : 398 ms P-R-T Axes : 94 -27 60 degrees QTcB Int : 450 ms Normal sinus rhythm Poor R wave progression, consider anterior IA vs. lead placement vs. LVH No previous ECGs available Confirmed by Luis Miguel Pete ([id number]) on 01/26/2025 7:29:05 AM Referred By: REFERRED SELF Confirmed By: Luis Miguel Pete
[2025-01-26] MEDS: ACETAMINOPHEN 500 MG TAB PO SCH (08:07)
[2025-01-26] MEDS: hydroCHLOROthiazide 25 MG TAB PO SCH (08:07)
[2025-01-26] MEDS: DOCUSATE SODIUM/SENNA 50/8.6MG TAB PO SCH (08:07)
--- NOTE | 2025-01-26 10:26 | Orthopedic Consultation ---
Date of Service January 26, 2025 Assessment & Plan (1) Fracture, humerus closed: Plan Patient also seen by Dr. Wang today. Her neurologic function to the left upper extremity is fully intact. Radial nerve sensory and motor function is intact. Surgical intervention is not indicated at this time. She can be maintained in the coaptation splint, which was adjusted today by Dr. Wang so that she rests in a more anatomical position. The sling should be attached so that the forearm is resting approximately at the navel. She can work with PT this morning, and then from an orthopedic standpoint she is safe for discharge. Patient and her were instructed that they can follow-up locally to their residence near [place], and get established with an orthopedic provider out there. If needed, they can contact their PCP to facilitate this happening. The coaptation splint should be transitioned to a Cochran brace in approximately 2 weeks from now. She can then be maintained in the Cochran brace for at least 1 month pending further radiographs of the humerus. Educated patient and her that over the days and weeks upcoming that gravity will take effect on the fracture/injury site, and allow the humerus to become more aligned. Patient does not need to be seen outpatient with [facility] orthopedics; rather, again, she can follow-up locally to her residence. She can utilize Tylenol for pain control, or if she feels she needs something a bit stronger, she can discuss this with the hospitalist service about getting a prescription for short course of a narcotic level medication. History of Present Illness Reason for Consultation: Left humerus fracture Requesting Physician: . Attending Physician: Mayte Lema MD Patient is a pleasant 80-year-old female that was visiting her daughter along with her from out of town. They normally reside in [facility] near [place]. She was outside yesterday and her daughters yard and apparently had misjudged a step or something and started to fall down a small slope in the yard near the swimming pool, when she attempted to reach out her left arm and catch herself on a fence, unfortunately entangled in her arm and shoulder in the fence as she was falling. She was brought to the [facility] ED last night, where x-rays were taken and demonstrated a displaced spiral fracture of the left humeral shaft. I was contacted by the answering service and ED ratoprinter about the case, imaging was reviewed, discussion was had with Dr. Wang about the case, and then a call was made back into the ED to speak with the ED physician. Informed that the injury did not require surgery. Recommendation was for placement of a coaptation splint, which she would remain in for 2 weeks. Then the patient could transition to a Cochran brace after this initial 2 weeks, and then remain in that brace for a minimum of 1 month pending further radiographs. ED was informed that the patient could be discharged and follow-up locally to their residence. However, it seems that the patient and her family were concerned about the patient's impaired functional ability due to the injury, and they were preferring that she be admitted under the hospitalist service for pain control and to work with PT. This was done, and orthopedics was formally consulted this morning. Allergies Allergy/AdvReac Type Severity Reaction Status Date / Time No Known Allergies Allergy Unverified 01/25/25 21:56 Home Medications Medication Instructions Recorded Confirmed Type Prevagen 1 cap PO DAILY 01/25/25 01/25/25 History hydrochlorothiazide 12.5 mg capsule 12.5 mg PO DAILY 01/25/25 01/25/25 History lisinopril 5 mg tablet 5 mg PO DAILY 01/25/25 01/25/25 History oxycodone 5 mg tablet 5 mg PO Q4H PRN pain (scale score 01/26/25 Rx 8-10) #14 tabs Past Med/Surg History Problem List Fracture, humerus closed (Acute) Medical History Hypertension Surgical History History of cataract Social History Smoking Status: Never smoker Hx Alcohol Use: Yes Hx Substance Use: No Preferred Language: Yi Communication Ability: Effective [employer] Operator Required: No Beliefs That Will Affect Care: None Current Living Situation: Spouse Feels Safe at Home: Yes Safety Concerns: Feels Safe At This Time Assistive Devices: Brace/Splint/Immobilizer Review of Systems All systems reviewed & are unremarkable except as noted in HPI & below. Physical Exam GENERAL: Speech and cognition is intact. Mood and affect is appropriate. In no acute distress. HEAD: Normocephalic; atraumatic. NECK: Full ROM; trachea is midline; no TTP; no cervical lymphadenopathy. CHEST: Regular chest respiration and excursion. NEURO: CN II-XII grossly intact with no focal deficits noted. SKIN: Some abrasions noted to the face and nasal bridge. Otherwise, no lesions, erythema, or rashes noted. Musculoskeletal: + wrist AROM. Median/Ulnar/Radial nerve distributions intact to sensory/motor. Radial pulse intact, 2+. Coaptation splint in place to left upper extremity. Sling donned, however, it was malfitting, with the arm at the patient's left side, instead of present anteriorly near the navel as preferred. Results & Data Results & Data Laboratory Results Laboratory Results - last 24 hr 01/25/25 01/25/25 01/26/25 19:54 21:20 05:32 WBC 8.38 8.58 RBC 4.04 L 3.42 L Hgb 12.3 10.7 L Hct 38.1 32.4 L MCV 94.3 94.7 MCH 30.4 31.3 MCHC 32.3 33.0 RDW Std Deviation 47.0 H 46.2 RDW Coeff of Kings 13.5 13.3 Plt Count 214 174 MPV 11.7 10.9 Immature Gran % (Auto) 0.5 Neut % (Auto) 59.4 Lymph % (Auto) 26.3 [place] % (Auto) 9.7 Eos % (Auto) 3.7 Baso % (Auto) 0.4 Neut # (Auto) 4.99 Lymph # (Auto) 2.20 [place] # (Auto) 0.81 H Eos # (Auto) 0.31 Baso # (Auto) 0.03 Immature Gran # (Auto) 0.04 PT Cancelled 10.7 INR Cancelled 1.0 APTT Cancelled 22 PTT Ratio Cancelled 0.8 Sodium 144 144 Potassium TNP 4.4 4.4 Chloride 110 H 112 H Carbon Dioxide 25 25 Anion Gap 9 7 BUN 26 H 27 H Creatinine 1.26 H 1.09 Est Cr Clr Drug Dosing 39.3 44.2 eGFR 42.62 50.72 BUN/Creatinine Ratio 20.6 H 24.8 H Glucose 110 H 126 H Calcium 9.3 8.7 Total Bilirubin 0.3 AST TNP 18 ALT 18 Alkaline Phosphatase 46 Total Protein 7.0 Albumin 3.9 Globulin 3.1 Albumin/Globulin Ratio 1.3 Diagnostic Findings Cervical Spine CT 01/25/25 17:51 Exam(s): CT C SPINE EXAM: CT Cervical Spine Without Intravenous Contrast CLINICAL HISTORY: Reason for exam: fall, contusion. TECHNIQUE: Axial computed tomography images of the cervical spine without intravenous contrast. CTDI is 36 mGy and DLP is 718 mGy-cm. Automated exposure control was utilized for the study. A dose lowering technique was utilized adhering to the principles of ALARA. COMPARISON: No relevant prior studies available. FINDINGS: Vertebrae: Moderate narrowing and osteophytosis of the atlantodental joint. The odontoid process is intact. No acute fracture. Soft tissues: Unremarkable. Vasculature: Mild calcification of the carotid bifurcation bilaterally. DISCS/SPINAL CANAL/NEURAL FORAMINA: C2-C3: Mild degenerative disc disease. No stenosis. C3-C4: Moderate degenerative disc disease. Mild spinal stenosis measuring 9 mm. C4-C5: Moderate degenerative disc disease. Posterior disc herniation and disc marginal osteophyte measuring 4 mm narrowing the spinal canal to 7 mm. C5-C6: Moderate degenerative disc disease. 6 mm central disc herniation narrowing the thecal sac to 5 mm. C6-C7: Moderate degenerative disc disease. 4 mm central disc herniation narrowing the thecal sac to 6 mm. C7-T1: Moderate degenerative disc disease. No stenosis. IMPRESSION: Moderate multilevel degenerative disc disease and mild facet arthrosis throughout the cervical spine. No acute fracture or subluxation is seen. There is straightening of the normal cervical curvature suggesting spasm. Exop-zh-[id number] multilevel spinal stenosis as described above. Electronically signed by: Sergo Wang MD 01/25/25 23:22 PM Elbow X-Ray 01/25/25 17:51 EXAM: XR elbow LT min 3V routine CLINICAL HISTORY: Fall left shoulder pain TECHNIQUE: X-ray images of the left elbow were obtained in anteroposterior (AP), lateral, and oblique projections. COMPARISON: No prior studies available for comparison. FINDINGS: Bone Structure: The bone structure of the left elbow is normal and well-aligned. Questionable cortical irregularity involving the coronoid process only on one view/osteophyte, please correlate clinically, or CT elbow joint is advised for further evaluation No definite evidence of acute fractures, dislocations, or significant degenerative changes. Visible posterior fat pad likely denoting joint effusion. Joint Spaces: Joint spaces are preserved. No evidence of joint effusion or subluxation. Articular Surfaces: Articular surfaces are smooth and intact. No signs of osteophyte formation or subchondral sclerosis. Soft Tissues: Enthesopathy is seen at the site of attachment of the triceps tendon Periarticular soft tissues appear normal and unremarkable. No soft tissue swelling, calcifications, or foreign bodies noted. Additional Findings: Visible posterior fat pad likely denoting joint effusion. IMPRESSION: 1. Questionable cortical irregularity involving the coronoid process only on one view/osteophyte, please correlate clinically, or CT elbow joint is advised for further evaluation 2. No definite evidence of acute fractures, dislocations, or significant degenerative changes. 3. Visible posterior fat pad likely denoting joint effusion. 4. Enthesopathy is seen at the site of attachment of the triceps tendon. Disclaimer: A subtle bone abnormality or fracture may not be readily apparent on X-rays, thus clinical correlation and further imaging including follow-up CT, MRI, or follow-up X-rays are advised as needed. Electronically signed by Jalil Parker 01-25-2025 8:53 PM Pelvis X-Ray 01/25/25 17:51 INDICATION: Trauma TECHNIQUE: Frontal pelvic radiograph and 1 additional view of the right hip were obtained. COMPARISON: None FINDINGS: No displaced acute osseous process is identified. Mild osteoarthritis of both hip joints. IMPRESSION: No displaced acute osseous process is identified. Electronically signed by Wai Madrigal 01-25-2025 8:18 PM Shoulder X-Ray 01/25/25 17:51 INDICATION: TRAUMA TECHNIQUE: 2 views of the left shoulder were obtained. COMPARISON: None FINDINGS: There is an acute traumatic and moderately displaced spiral fracture in the proximal shaft of the left humerus with medial displacement of the distal humeral segment. IMPRESSION: Acute traumatic and moderately displaced spiral fracture of the left proximal humerus. Electronically signed by Wai Madrigal 01-25-2025 7:46 PM PG Care Time/CCT Total # of Minutes Spent Total Time Spent with Patient: Total time spent is greater than 50% in coordination of care (as documented) at patient's floor/unit and/or counseling patient: [place] [address] IN/OBS CONSULT LVL 3,45M Patient Type New History Detailed Exam Expanded Problem Focused Medical Decision Making Low Complexity Diagnoses Closed displaced spiral fracture of shaft of left humerus, initial encounter S42.342A Encounter type: initial encounter Fracture alignment: displaced Fracture morphology: spiral Humerus Location: shaft Laterality: left Additional Codes Fx Shoulder/Humerus - Humeral Shaft WITH manip: Humeral Shaft WITH manip ([id number]) (1) Fracture, humerus closed Encounter type: initial encounter Fracture alignment: displaced Fracture morphology: spiral Humerus Location: shaft Laterality: left Qualified Code(s): S42.342A - Displaced spiral fracture of shaft of humerus, left arm, initial encounter for closed fracture
--- NOTE | 2025-01-26 12:06 | Discharge Summary ---
Discharge Summary Date of Service January 26, 2025 Principal Dx & Hospital Course #1 = Principal Diagnosis (1) Fracture, humerus closed: (2) Hypertension: Plan 80 yo female with history of HTN presenting with acute traumatic and moderately displaced spiral fracture of the left proximal humerus that occurred this evening when patient sustained a fall and entangled her arm in a fence. LUE is presently being placed in a splint. Neurovascularly intact with 5/5 strength in left hand #left humerus Fracture CBC & BMP stable L shoulder XR: acute traumatic & moderately displaced spiral fx of left proximal humerus Head CT & pelvic XR negative Ortho consulted --> recommend non surgical approach. needs to establish w/ ortho near her home. Maintain coaptation splint & a Cochran brace should be applied in approx. 2 weeks from now. reports PCP can refer patient to orthopedics @ home PT/OT consulted --> recommending home health - nursing made CM aware Oxycodone prn for pain @ home. Recommend Tylenol 1000mg q8h scheduled. #Nasal fracture Face CT: left nasal high fracture w/ soft tissue swelling Dr. Mcmanus consulted --> recommending no surgery & supportive care. #Hypertension Now that pain controlled, BP normotensive Continue home HCTZ & Lisinopril on discharge Updated at bedside 01/26. Discharged home 01/26. Admission HPI Per Admitting Provider Norma Garcia is a pleasant 80yo female with history of HTN presenting after a fall at home. Patient and her are from [facility] and are visiting family in [email or web address]. She presents today with her and her son (son is a Neurosurgeon in the [place] area). Patient had been in her usual state of health until this evening when she fell down a small slope in the yard near the pool. Her left arm became entangled in a metal fence and she fell. She did strike her face but denies LOC. No report of chest pain, dizziness or palpitations. Patient presents with significant pain in the left arm with visible deformity as well as laceration on her nose. No additional complaints at this time. ER staff is in the process of splinting the LUE ER Course: Acetaminophen 1gm Morphine 2mg + 2mg + 2mg Zofran 4mg NSS x 1L Discharge Exam Constitutional WD/WN, vitals as above Eyes PERRL, conjunctivae normal, anicteric sclerae ENMT bruise on top of nose area Respiratory normal respiratory effort Cardiovascular no LE edema Musculoskeletal left arm in sling Neurologic PERRL, EOMI, accommodation nl, no face palsy, no dysarthria Psychiatric A+Ox3, euthymic affect Discharge Plan Discharge Items Patient Disposition: Home - Self-Care Reason For Visit: S/P FALL, LUE HUMERUS FRACTURE Discharge Diagnosis: left humerus fracture Condition on Discharge: Fair Activity: Per Instructions section Lifting Comment: no lifting with left arm Exercise/Sports: As tolerated Non-emergency contact: Primary Care Provider and Surgeon Call non-emergency contact if: you have any medication questions and your symptoms worsen Follow-up/Referrals: Gavin Montalvo DO [Primary Care Provider] - Diet: Regular Addtl Attending Provider Instructions: Mrs. Garcia, Isaak were recently hospitalized after sustaining a fall. You were found to have a nasal fracture and a left humerus fracture. You were evaluated by our orthopedics team who stated you do not need surgery at this time. You were also evaluated by oromaxillary surgery who also stated you do not need any surgery on your nose at this time. Please see recommendations below regarding your discharge. Please take Tylenol 1000mg every 8 hours scheduled to help with your pain. Please use Oxycodone 5mg every 4 hours as needed for breakthrough pain. Please keep your arm in your sling at all times unless dressing. Please follow up with an orthopedic surgeon near your hometown within 2 weeks of discharge. Please also follow up with your PCP within 1-2 weeks of discharge. Best of luck! Genna Torres PA-C Pending Studies at Discharge: No Stand-Alone Forms: My [employer], Smoking Cessation Medications and DC Order Prescriptions: New oxycodone 5 mg tablet 5 mg PO Q4H PRN (Reason: pain (scale score 8-10)) Qty: 14 0RF Continued hydrochlorothiazide 12.5 mg Capsule 12.5 mg PO DAILY Rx Instructions: unsure of strength lisinopril 5 mg Tablet 5 mg PO DAILY Rx Instructions: Unsure of strength Prevagen 1 cap PO DAILY Discharge Orders: Discharge Order (Routine); Ordered 01/26/25 Ordered By: Genna Torres Admission Data Admit Date/Time: 01/25/25 22:25 Attending Provider: Mayte Lema Admit Provider: Adeline Wang Primary Care Provider: Gavin Montalvo Other Providers: Kam Wang; Adeline Wang; Ayad Mcmanus Other Interventions: Discharge Summary Assessment (RN) Last Done: 01/26/25 12:09 Hospital Stay Data Consultations 01/25/25 21:43 ED Decision to Admit Stat 01/25/25 22:25 Consult Orthopedic Surgery Routine 01/26/25 08:47 Consult Oromaxillofacial Surgery Routine Diagnostic Imagining Performed 01/25/25 17:51 CT cervical spine wo con Stat CT head/brain wo con Stat 01/25/25 17:53 CT face [CT facial bones wo con] Stat Pending Results Patient Have Any Pending Studies at Discharge: No Discharge Instructions Given to Patient (Per Discharging Provider) Isaak Moya were recently hospitalized after sustaining a fall. You were found to have a nasal fracture and a left humerus fracture. You were evaluated by our orthopedics team who stated you do not need surgery at this time. You were also evaluated by oromaxillary surgery who also stated you do not need any surgery on your nose at this time. Please see recommendations below regarding your discharge. Please take Tylenol 1000mg every 8 hours scheduled to help with your pain. Please use Oxycodone 5mg every 4 hours as needed for breakthrough pain. Please keep your arm in your sling at all times unless dressing. Please follow up with an orthopedic surgeon near your hometown within 2 weeks of discharge. Please also follow up with your PCP within 1-2 weeks of discharge. Best of luck! Genna Torres PA-C Total Time Total Time Spent Total Time Spent (In Minutes): 45 Total Time Includes: Examination of the Patient, Discharge Planning and Medication Reconciliation Coding Level of Care Code 74453 INP/OBS DISCH >30 MIN Diagnoses Closed displaced spiral fracture of shaft of left humerus, initial encounter S42.342A Encounter type: initial encounter Fracture alignment: displaced Fracture morphology: spiral Humerus Location: shaft Laterality: left Hypertension I10
[2025-01-26 12:10] VITALS: PULSE 75
== END 2025-01-26 13:29 | disposition home or self-care (01) | DRG 563 ==
LOC: ED 17:30 → 3N 22:25 → INTOOBSV 22:25 → SUATTDRO 22:25 → 3N 23:13